=== PATIENT | female | born 1995 | race African-American/Black ===

== ENCOUNTER 2021-03-31 05:32 | Emergency (ER) | payer BC, SELFPAY ==
--- NOTE | ~2021-03-31 | CT_ITS ---
EXAMINATION: CT abdomen pelvis w con DATE: 03/31/2021 09:22 INDICATION: Lower abdominal pain and right flank pain TECHNIQUE: Computed tomography (CT) of the abdomen and pelvis was performed with 100 mL Omnipaque-350 intravenous contrast. Iterative reconstruction technique was employed. The dose-length product was 3 94.53 mGy-cm. COMPARISON: 03/31/2013 FINDINGS: Mild discoid atelectasis in the basilar right lower lobe. Heart size is normal. No pericardial or ple ural effusion. Liver, gallbladder, spleen, pancreas, bilateral adrenal glands and kidneys are normal. No hydronephrosis or evident urolithiasis. Bladder an anteverted uterus are normal. Bilateral adnexa l cysts measuring 3.0 cm on the left and 1.5 cm on the right. There are couple small diverticula chloe g the distal sigmoid colon without adjacent inflammatory change to suggest diverticulitis. Small micky l and appendix are normal. Small fat-containing umbilical hernia. No free intraperitoneal gas or flui d. No pathologically enlarged abdominal or pelvic lymphadenopathy. Bones are unremarkable. IMPRESSION: 1. No acute intra-abdominal/pelvic process. Normal appendix. Reviewed, dictated and finalized at location A.
[2021-03-31 05:37] VITALS: BP 131/99; PULSE 100; RESP 20; TEMP 36.4; O2SAT 100
[2021-03-31 06:07] LABS: Basophils Absolute Auto 0.1 K/mm3 (0.0-0.1); Basophils Percent Auto 0.7 % (0.2-1.2); Eosinophils Absolute Auto 0.3 K/mm3 (0-0.3); Eosinophils Percent Auto 3.7 % (0-4.4); Hematocrit 38.7 % (37.0-47.0); Hemoglobin 12.7 g/dL (12.0-15.0); Immature Granulocyte Absolute 0.02 K/mm3 (0.00-0.031); Immature Granulocyte Percent A 0.3 % (0-0.5); Lymphocytes Absolute Auto 2.82 K/mm3 (0.9-3.2); Lymphocytes Percent Auto 39.9 % (18.3-44.2); Mean Corpuscular HGB Conc 32.8 g/dl (32-36); Mean Corpuscular Hemoglobin 29.7 pg (26-34); Mean Corpuscular Volume 90.6 fl (80-100); Mean Platelet Volume 11.3 fl (7.4-10.4); Monocytes Absolute Auto 0.8 K/mm3 (0.1-0.6); Monocytes Percent Auto 10.6 % (2.6-8.5); Neutrophils Absolute Auto 3.2 K/mm3 (1.3-6.7); Neutrophils Percent Auto 44.8 % (45.5-73.1); Platelet Count Result 250 k/mm3 (150-375); Red Blood Count 4.27 M/mm3 (4.2-5.4); White Blood Count 7.1 K/mm3 (4.5-10.0)
[2021-03-31 06:17] LABS: Alanine Aminotransferase 13 U/L (4-35); Albumin Level 4.7 g/dL (3.5-5.1); Alkaline Phosphatase 69 U/L (38-126); Anion Gap 11 mmol/L (8-16); Aspartate Amino Transferase 25 U/L (14-36); Bilirubin,Total 0.3 mg/dL (0.2-1.3); Blood Urea Nitrogen 11 mg/dL (7-17); Calcium 9.6 mg/dL (8.4-10.2); Carbon Dioxide 19 mmol/L (22-30); Chloride 108 mmol/L (98-107); Estimated CRCL calculation 108 ml/min; Estimated Glomerular Filt Rate > 60; Glucose 88 mg/dL (65-110); Lipase 79 U/L (23-300); Potassium 4.1 mmol/L (3.4-5.0); Sodium 138 mmol/L (137-145)
[2021-03-31 06:20] LABS: Add Urine Microscopic? YES; Appearance Urine Turbid (Clear); Bacteria Urine Trace /hpf; Bilirubin Urine Negative (Negative); Color Urine Amber (Yellow); Glucose Urine UA Negative (Negative); Ketones Urine Negative (Negative); Leukocyte Esterase Ur 1+ LEU/UL (Negative); Mucus Urine Moderate /lpf; Nitrate Urine Negative (Negative); Protein Urine 1+ mg/dL (Negative); Squamous Epithelial Cell Urine Many /hpf (Few)
[2021-03-31 06:21] LABS: Blood Urine Negative (Negative); Specific Grav Ur 1.031 (1.001-1.035)
[2021-03-31 07:36] VITALS: BP 122/89; PULSE 77; RESP 18; O2SAT 100
--- NOTE | 2021-03-31 09:14 | ED.ABDPAIN ---
HPI - Abdominal Pain General Chief Complaint: Abdominal Pain Stated Complaint: multiple complaints Time Seen by Provider: 03/31/21 09:03 Source: patient and RN notes reviewed Mode of arrival: ambulatory Limitations: no limitations History of Present Illness HPI narrative: 25 years old -[place] female presents to the ED complaining of lower abdominal pain for 1 week. Radiating to right flank area. Patient denies any fever, chills, nausea, vomiting. Patient also complaining of itching rash of the upper back, shoulders and chest for months. Did not see any physician for it yet. Related Data Allergies Allergy/AdvReac Type Severity Reaction Status Date / Time No Known Allergies Allergy Verified 03/31/21 09:31 Review of Systems Review of Systems: CONSTITUTIONAL: Denies fever, chills, or sweats. EYES: Denies visual changes, redness, or discharge. ENT: Denies rhinorrhea, congestion, sore throat, or otalgia. CARDIOVASCULAR: Denies chest pain, palpitations, or edema. RESPIRATORY: Denies cough or dyspnea. GASTROINTESTINAL: Denies abdominal pain, nausea, vomiting, or diarrhea. GENITOURINARY: Denies dysuria or hematuria. SKIN: Denies rash or itching. MUSCULOSKELETAL: Denies back pain, joint pain, or myalgia. NEUROLOGIC: Denies headache, numbness, or weakness. PSYCHIATRIC: Denies anxiety or depression. Exam Narrative: General appearance: Well-developed, well-nourished Skin: Normal color, acne-like lesions at the upper chest and upper back Head: Normocephalic, nontraumatic Eyes: Clear conjunctiva ENT: Oropharynx normal, ears normal, nose normal Neck: Supple, nontender Chest and respiratory: Airway patent, no respiratory distress, no accessory muscle use Heart: Regular rate/rhythm Abdomen: Soft, nontender, no organomegaly, quiet bowel sounds, severe tenderness right flank Vascular: Normal peripheral pulses, normal capillary refill. Musculoskeletal: Normal range of motion, nontender back Neurologic: Alert and oriented ?3, [employer] is normal as tested, no gross motor deficit Course Course Emergency Course: Stable Vital Signs Vital signs: Vital Signs Temperature 36.4 C L 03/31/21 05:37 Pulse Rate 100 03/31/21 05:37 Respiratory Rate 20 03/31/21 05:37 Blood Pressure 131/99 H 03/31/21 05:37 Pulse Oximetry 100 03/31/21 05:37 Temperature 36.4 C L 03/31/21 05:37 Pulse Rate 74 03/31/21 09:34 Respiratory Rate 18 03/31/21 09:34 Blood Pressure 97/59 L 03/31/21 09:34 Pulse Oximetry 100 03/31/21 09:34 MDM - Abdominal Pain MDM Narrative Medical decision making narrative: Patient presents with lower abdominal pain radiating to right flank, my differential diagnosis as below. Labs, IV fluid, CT abdomen pelvis with IV contrast ordered. Differential Diagnosis Differential diagnosis: Likely abdominal pain, acute appendicitis, calculus of kidney, constipation and other (Pyelonephritis) Lab Data Result diagrams: 03/31/21 05:59 03/31/21 05:58 Labs: Lab Results 03/31/21 03/31/21 03/31/21 Range/Units 05:58 05:58 05:59 WBC 7.1 (4.5-10.0) K/mm3 RBC 4.27 (4.2-5.4) M/mm3 Hgb 12.7 (12.0-15.0) g/dL Hct 38.7 (37.0-47.0) % MCV 90.6 (80-100) fl MCH 29.7 (26-34) pg MCHC 32.8 (32-36) g/dl RDW 14.0 (11.5-14.5) % Plt Count 250 (150-375) k/mm3 MPV 11.3 H (7.4-10.4) fl Immature Gran % (Auto) 0.3 (0-0.5) % Neut % (Auto) 44.8 L (45.5-73.1) % Lymph % (Auto) 39.9 (18.3-44.2) % Branch % (Auto) 10.6 H (2.6-8.5) % Eos % (Auto) 3.7 (0-4.4) % Baso % (Auto) 0.7 (0.2-1.2) % Lymph # (Auto) 2.82 (0.9-3.2) K/mm3 Branch # (Auto) 0.8 H (0
[2021-03-31 09:34] VITALS: BP 97/59; PULSE 74; RESP 18; O2SAT 100
[2021-03-31] MEDS: SODIUM CHLORIDE 0.9% IV 1,000 ML 999 ML IV CONT (09:36)
[2021-03-31 11:49] VITALS: BP 106/71; PULSE 72; RESP 18; O2SAT 98
[2021-03-31 12:02] VITALS: BP 106/72; PULSE 72; RESP 18; O2SAT 98
== END 2021-03-31 12:07 | disposition home or self-care (01) ==
PROVIDERS: Emergency Medicine; Emergency Provider Emergency Medicine
DX: N39.0 Urinary tract infection, site not specified (principal); R21 Rash and other nonspecific skin eruption
CPT/HCPCS: 36415; 74177; 80053; 81001; 81025; 83690; 85025; 87086; 87088; 96360; 96361; 99284; J7030; Q9967

== ENCOUNTER 2021-05-11 11:00 | Emergency (ER) | payer BC, SELFPAY ==
--- NOTE | ~2021-05-11 | XR_ITS ---
EXAMINATION: XR chest 1V portable INDICATION: Chest tightness and weakness TECHNIQUE: Portable AP chest at 1310 hours COMPARISON: 04/02/2019 FINDINGS: There are minimal opacities of the right lung base. No pleural effusion or pneumothorax is identified. The cardiomediastinal silhouette is normal. IMPRESSION: 1. Minimal right basilar airspace opacity, consistent with atelectasis versus pneumonia. Reviewed, dictated and finalized at location B. IMPRESSION: 1. Minimal right basilar airspace opacity, consistent with atelectasis versus p neumonia.
[2021-05-11 11:28] VITALS: BP 114/91; PULSE 91; RESP 18; TEMP 36.1; O2SAT 100
[2021-05-11 11:56] VITALS: O2SAT 100
--- NOTE | 2021-05-11 13:39 | ECG_ITS ---
Measurements Intervals [place] Rate: 85 P: 67 [place]: 156 QRS: 50 QRSD: 100 T: 9 QT: 349 QTc: 416 Interpretive Statements SINUS RHYTHM NONSPECIFIC T-WAVE ABNORMALITY- INFERIOR LEADS BORDERLINE ECG Electronically Signed On 05-11-2021 19:02:52 CDT by Oscar Faust D.O.
--- NOTE | 2021-05-11 13:40 | ED.URI ---
HPI - URI/Sore Throat General Chief Complaint: Upper Respiratory Infection Stated Complaint: loss of taste and smell, headache Time Seen by Provider: 05/11/21 12:59 Source: patient Mode of arrival: ambulatory Limitations: no limitations History of Present Illness HPI Narrative: This is a 25-year-old female that presents to the emergency department for cold symptoms since this morning. Reports headache, cough, and loss of sense of taste and smell. Does report she is Covid vaccinated. She also reports she has started to develop some chest tightness. Reports history of asthma. Denies fever or shortness of breath. Related Data Home Medications Medication Instructions Recorded Confirmed albuterol See Rx Instructions .ROUTE 05/11/21 05/11/21 .COMPLEX PRN Allergies Allergy/AdvReac Type Severity Reaction Status Date / Time coconut oil Allergy Unknown Swelling Unverified 05/11/21 11:59 Mushroom Allergy Unknown Swelling Uncoded 05/11/21 11:59 Review of Systems Review of Systems: CONSTITUTIONAL: Denies fever ENT: Reports congestion CARDIOVASCULAR: Reports chest tightness RESPIRATORY: Reports cough. Denies dyspnea. All systems reviewed & are unremarkable except as noted in HPI and below PMFSH Past Medical History Medical History (Updated 05/11/21 @ 14:23 by Leah Finley PA-C) History of asthma Social History Social History (Updated 05/11/21 @ 13:43 by Leah Finley PA-C) Substance use: never Exam Narrative: GENERAL: Well-appearing, well-nourished, and in no acute distress. HEAD: Normocephalic, atraumatic. EYES: EOMI. ENT: Turbinates swollen and pale. Mucous membranes moist. Oropharynx without tonsillar hypertrophy exudate or other lesions. Bilateral TMs pearly willett non-bulging NECK: Supple. No adenopathy or masses. CHEST: Clear to auscultation. No respiratory distress. No wheezes rales or rhonchi HEART: Regular rate and rhythm. No murmur heard. Normal peripheral pulses. EXTREMITIES: Normal range of motion. No edema. SKIN: Warm, dry, no rash. NEURO: No focal deficits. Alert and oriented x3. PSYCH: Normal mood and affect Course Vital Signs Vital signs: Vital Signs Temperature 97 F L 05/11/21 11:28 Pulse Rate 91 05/11/21 11:28 Respiratory Rate 18 05/11/21 11:28 Blood Pressure 114/91 H 05/11/21 11:28 Pulse Oximetry 100 05/11/21 11:28 Temperature 97 F L 05/11/21 11:28 Pulse Rate 91 05/11/21 11:28 Respiratory Rate 18 05/11/21 11:28 Blood Pressure 114/91 H 05/11/21 11:28 Pulse Oximetry 100 05/11/21 11:56 MDM - URI/Sore Throat MDM Narrative Medical decision making narrative: Patient presents the emergency department for cold symptoms since this morning. She is afebrile and nontoxic-appearing. Vitals are stable. Chest x-ray shows minimal right basilar airspace opacity consistent with atelectasis versus pneumonia. EKG without concerning findings. Patient was swabbed for coronavirus. Patient ended up leaving AGAINST MEDICAL ADVICE before receiving any further treatment and before evaluation was finished Lab Data Attestation: I reviewed the patient's lab results. Result diagrams: 05/11/21 14:04 05/11/21 14:04 Labs: Lab Results 05/11/21 05/11/21 05/11/21 Range/Units 13:19 14:04 14:04 WBC 4.2 L (4.5-10.0) K/mm3 RBC 4.12 L (4.2-5.4) M/mm3 Hgb 12.5 (12.0-15.0) g/dL Hct 38.0 (37.0-47.0) % MCV 92.2 (80-100) fl MCH 30.3 (26-34) pg MCHC 32.9 (32-36) g/dl RDW 14.9 H (11.5-14.5) % Plt Count 222 (150-375) k/mm3 MPV 10.5 H (7.4-10.4) fl Immature Gran % (Auto) 0.2 (0-0.5) % Neut % (Auto) 42.2 L (45.5-73.1) % Lymph % (Auto) 43.0 (18.3-44.2) % Mcdonough % (Auto) 9.2 H (2.6-8.5) % Eos % (Auto) 4.7 H (0-4.4) % Baso % (Auto) 0.7 (0.2-1.2) % Lymph # (Auto) 1.82 (0.9-3.2) K/mm3 Mcdonough # (Auto) 0.4 (0.1-0.6) K/mm3 Eos # (Auto) 0.2 (0-0.3) K/mm3 Baso # (
[2021-05-11] MEDS: ALBUTEROL SULFATE (*SP) AEROSOL 1 PUFF 4 PUFF INHALATION (13:51)
[2021-05-11 14:14] LABS: Basophils Percent Auto 0.7 % (0.2-1.2); Eosinophils Absolute Auto 0.2 K/mm3 (0-0.3); Eosinophils Percent Auto 4.7 % (0-4.4); Hemoglobin 12.5 g/dL (12.0-15.0); Immature Granulocyte Absolute 0.01 K/mm3 (0.00-0.031); Immature Granulocyte Percent A 0.2 % (0-0.5); Lymphocytes Absolute Auto 1.82 K/mm3 (0.9-3.2); Mean Corpuscular HGB Conc 32.9 g/dl (32-36); Mean Corpuscular Hemoglobin 30.3 pg (26-34); Mean Corpuscular Volume 92.2 fl (80-100); Mean Platelet Volume 10.5 fl (7.4-10.4); Monocytes Absolute Auto 0.4 K/mm3 (0.1-0.6); Monocytes Percent Auto 9.2 % (2.6-8.5); Neutrophils Absolute Auto 1.8 K/mm3 (1.3-6.7); Neutrophils Percent Auto 42.2 % (45.5-73.1); Platelet Count Result 222 k/mm3 (150-375); Red Blood Count 4.12 M/mm3 (4.2-5.4); Red Cell Distribution Width 14.9 % (11.5-14.5); White Blood Count 4.2 K/mm3 (4.5-10.0)
--- NOTE | 2021-05-11 14:17 | PC.NURSE ---
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 LEONCIO made aware.
[2021-05-11 14:27] LABS: Anion Gap 5 mmol/L (8-16); Blood Urea Nitrogen 6 mg/dL (7-17); Calcium 8.9 mg/dL (8.4-10.2); Carbon Dioxide 23 mmol/L (22-30); Chloride 110 mmol/L (98-107); Estimated CRCL calculation 124 ml/min; Estimated Glomerular Filt Rate > 60; Glucose 91 mg/dL (65-110); Potassium 3.8 mmol/L (3.4-5.0); Sodium 138 mmol/L (137-145)
[2021-05-11 14:39] LABS: Troponin I < 0.012 ng/mL (0.000-0.034)
[2021-05-12 19:29] LABS: SARS-CoV-2 RNA PCR Negative
== END 2021-05-11 14:27 | disposition left against medical advice (07) ==
PROVIDERS: Physician Assistant; Emergency Provider Emergency Medicine
DX: R05 Cough (principal); R43.8 Other disturbances of smell and taste; R51.9 Headache, unspecified; Z20.822 Contact with and (suspected) exposure to COVID-19; J45.909 Unspecified asthma, uncomplicated; R91.8 Other nonspecific abnormal finding of lung field; R94.31 Abnormal electrocardiogram [ECG] [EKG]
CPT/HCPCS: 36415; 71045; 80048; 84484; 85025; 93005; 99284; A9270; C9803; U0003; U0005

== ENCOUNTER 2021-05-11 18:42 | Emergency (ER) | payer BC, SELFPAY ==
[2021-05-11 18:55] VITALS: BP 131/87; PULSE 86; RESP 16; TEMP 36.9; O2SAT 100
[2021-05-11 19:52] VITALS: O2SAT 100
--- NOTE | 2021-05-11 20:13 | ED.GENADULT ---
HPI - General Adult General Chief complaint: Upper Respiratory Infection Stated complaint: shortness of breath Time Seen by Provider: 05/11/21 19:44 History of Present Illness HPI narrative: Patient is a 25-year-old female who presents to the ER with Covid symptoms. Yesterday evening she developed cough and loss of taste/smell. Persist today. She came to see in the ER and left AMA. She is been at work and is feeling more fatigued so she came back. Reports she has cough that will be rapid in the make it where she has trouble catching her breath afterwards. No wheezing. Patient had a Covid PCR performed and is technically a PUI. Related Data Home Medications Medication Instructions Recorded Confirmed albuterol See Rx Instructions .ROUTE 05/11/21 05/11/21 .COMPLEX PRN Allergies Allergy/AdvReac Type Severity Reaction Status Date / Time coconut oil Allergy Unknown Swelling Verified 05/11/21 19:52 Mushroom Allergy Unknown Swelling Uncoded 05/11/21 19:52 Review of Systems Constitutional: Constitutional: Denies chills, Reports fatigue and Reports fever(s) ENT: Denies nasal congestion and Denies sore throat Cardiovascular: Cardiovascular: Denies chest pain and Denies radiating jaw, neck or arm pain Respiratory: Respiratory: Reports cough, Denies dyspnea and Denies wheezing Gastrointestinal: Gastrointestinal: Denies abdominal pain, Denies nausea and Denies vomiting PMFSH Past Medical History Medical History (Updated 05/11/21 @ 20:15 by Karlo Herzog MD) History of asthma Surgical History Surgical History (Updated 05/11/21 @ 20:14 by Karlo Herzog MD) No pertinent past surgical history Social History Social History (Updated 05/11/21 @ 13:43 by Leah Finley PA-C) Substance use: never Exam Narrative: GENERAL: Well-appearing, well-nourished, and in no acute distress. HEAD: Normocephalic, atraumatic. CHEST: Clear to auscultation. No respiratory distress. HEART: Regular rate and rhythm. Normal peripheral pulses. EXTREMITIES: Normal range of motion. No edema. NEURO: Alert and oriented x3. PSYCH: Normal mood and affect. Course Course Emergency Course: Discharged with albuterol and work note. Vital Signs Vital signs: Vital Signs Temperature 98.4 F 05/11/21 18:55 Pulse Rate 86 05/11/21 18:55 Respiratory Rate 16 05/11/21 18:55 Blood Pressure 131/87 05/11/21 18:55 Pulse Oximetry 100 05/11/21 18:55 Temperature 98.4 F 05/11/21 18:55 Pulse Rate 86 05/11/21 18:55 Respiratory Rate 16 05/11/21 18:55 Blood Pressure 131/87 05/11/21 18:55 Pulse Oximetry 100 05/11/21 19:52 Medical Decision Making Vital Signs Vital Signs: Vital Signs Temperature 98.4 F 05/11/21 18:55 Pulse Rate 86 05/11/21 18:55 Respiratory Rate 16 05/11/21 18:55 Blood Pressure 131/87 05/11/21 18:55 Pulse Oximetry 100 05/11/21 18:55 Temperature 98.4 F 05/11/21 18:55 Pulse Rate 86 05/11/21 18:55 Respiratory Rate 16 05/11/21 18:55 Blood Pressure 131/87 05/11/21 18:55 Pulse Oximetry 100 05/11/21 19:52 Discharge Plan Discharge Clinical Impression: Person under investigation for severe acute respiratory syndrome coronavirus 2 (SARS-CoV-2) infection Patient Disposition: Home, Self-Care Condition: Stable Instructions: COVID-19 (Coronavirus Disease 2019) (ED) Additional Instructions: Your person under investigation for Covid. We are awaiting your Covid test results. You should remain in isolation until you receive the results. If your results are positive you will need to self isolate for 10 days. Return the ER if you lose consciousness, you cannot breathe, or you have additional concerns. Prescriptions: New albuterol sulfate 90 mcg/actuation HFA aerosol inhaler 2 puff INHALATION QID PRN (Reason: shortness of breath or wheezing) Qty: 8 RF: 0 No Action albuterol 90 mcg/actuation Aerosol See Rx Instructions .ROUTE .
[2021-05-11 20:28] VITALS: BP 110/71; PULSE 98; RESP 14; O2SAT 100
== END 2021-05-11 20:27 | disposition home or self-care (01) ==
PROVIDERS: Emergency Provider Emergency Medicine
DX: R43.8 Other disturbances of smell and taste (principal); R05 Cough; Z20.822 Contact with and (suspected) exposure to COVID-19; J45.909 Unspecified asthma, uncomplicated
CPT/HCPCS: 99283

== ENCOUNTER 2023-05-30 21:43 | Emergency (ER) | payer BC, SELFPAY ==
[2023-05-30] VITALS (9 sets, daily range): BP systolic 105–124; BP diastolic 68–81; PULSE 94–107; RESP 12–24; TEMP 36.1; O2SAT 98–100
--- NOTE | ~2023-05-30 | XR_ITS ---
EXAMINATION: XR chest 2V DATE: 05/31/2023 01:44 INDICATION: Cough, left-sided chest pain TECHNIQUE: Frontal and lateral views of the chest are obtained COMPARISON: 05/11/2021 FINDINGS: The lungs are free of acute opacities. No pleural effusion or pneumothorax. The cardiomedia stinal silhouette is normal. The visualized bones and soft tissues are unremarkable. IMPRESSION: 1. No acute cardiopulmonary abnormality. Reviewed, dictated and finalized at location F.
--- NOTE | ~2023-05-30 | CT_ITS ---
EXAMINATION: CT brain wo con INDICATION: Headache COMPARISON: 04/02/2019 TECHNIQUE: Standard unenhanced head CT. The dose-length product (DLP) was 605.33 mGy-cm. The mA was a djusted according to patient size. Iterative reconstruction technique was employed. FINDINGS: No intracranial hemorrhage, acute infarction, or abnormal mass lesion. The ventricles are n ormal. No abnormal mass effect or midline shift. The willett-white matter differentiation is normal. The basal cisterns are patent. The orbits are normal. The paranasal sinuses, mastoids and calvarium are normal. IMPRESSION: 1. No acute intracranial abnormality. Reviewed, dictated and finalized at location F.
--- NOTE | 2023-05-30 23:30 | PC.NURSE ---
This Rn assumed care of patient. This RN took patient report from KAREN Sarah.
[2023-05-31] VITALS (21 sets, daily range): BP systolic 98–123; BP diastolic 60–88; PULSE 87–111; RESP 12–28; O2SAT 100
--- NOTE | 2023-05-31 00:20 | ECG_ITS ---
Measurements Intervals [place] Rate: 92 P: 44 OR: 149 QRS: 48 QRSD: 103 T: 16 QT: 350 QTc: 435 Interpretive Statements SINUS RHYTHM BORDERLINE T WAVE ABNORMALITY- INFERIOR LEADS BASELINE ARTIFACT- I, III, V5 BORDERLINE ECG COMPARED TO ECG 05/11/2021 14:00:54 NO SIGNIFICANT CHANGES Electronically Signed On 05-31-2023 8:11:31 CDT by Oscar Faust D.O.
--- NOTE | 2023-05-31 00:20 | ED.HA ---
HPI - Headache General Chief Complaint: Headache <SYDNIE Griffiths Last Filed: 05/31/23 04:41> Stated Complaint: URI <SYDNIE Griffiths Last Filed: 05/31/23 04:41> Time Seen by Provider: 05/30/23 23:44 <SYDNIE Griffiths Last Filed: 05/31/23 04:41> History of Present Illness HPI Narrative: 27-year-old female reports to the emergency department for multiple complaints. Patient states she has a history of migraines and has been having migraine headaches for the past week. States today she is having a headache that shoots from the left side of her neck up into her head that is different from her prior migraines. She states last night she developed rhinorrhea and nasal congestion and this morning woke up with a productive cough, sore throat, chest pain and shortness of breath. She reports the chest pain is pleuritic, intermittent and sharp in nature overlying her anterior left chest wall. She denies hemoptysis, history of VTE, fever, abdominal pain, vomiting or diarrhea. She reports body aches and chills. States she took a antihistamine yesterday without improvement. Denies vision changes, focal numbness or weakness, head injury, loss of consciousness, palpitations, BLE. <SYDNIE Griffiths Last Filed: 05/31/23 04:41> Related Data Home Medications: Home Medications Medication Instructions Recorded Confirmed albuterol 90 mcg/actuation aerosol See Rx Instructions .Route 05/11/21 05/11/21 inhaler .COMPLEX PRN Shortness Of Breath Or Wheezing <SYDNIE Griffiths Last Filed: 05/31/23 04:41> Allergies/Adverse Reactions: Allergies Allergy/AdvReac Type Severity Reaction Status Date / Time coconut oil Allergy Unknown Swelling Verified 05/31/23 00:31 Mushroom Allergy Unknown Swelling Uncoded 05/14/21 15:42 <SYDNIE Griffiths Last Filed: 05/31/23 04:41> Review of Systems Review of Systems: CONSTITUTIONAL: See HPI EYES: Denies visual changes, redness, or discharge. ENT: See HPI CARDIOVASCULAR: See HPI RESPIRATORY: See HPI GASTROINTESTINAL: Denies abdominal pain, nausea, vomiting, or diarrhea. GENITOURINARY: Denies dysuria or hematuria. SKIN: Denies rash or itching. MUSCULOSKELETAL: Denies back pain, joint pain, or myalgia. NEUROLOGIC: See HPI PSYCHIATRIC: Denies anxiety or depression. <Leora Alexander PA-C - Last Filed: 05/31/23 04:41> [facility] Past Medical History Medical History: Medical History History of asthma <Leora Alexander PA-C - Last Filed: 05/31/23 04:41> Surgical History Surgical History: Surgical History No pertinent past surgical history <Leora Alexander PA-C - Last Filed: 05/31/23 04:41> Social History Social History: Social History Substance use: never <Leora Alexander PA-C - Last Filed: 05/31/23 04:41> Exam Narrative: GENERAL: Well-appearing, in no acute distress. Patient resting comfortably in exam bed. She is pleasant and conversational. Speaking in full sentences. HEAD: Normocephalic EYES: PERRLA, EOMI ENT: Nares clear. Mucous membranes moist. Oropharynx without tonsillar hypertrophy exudate or other lesions. NECK: Supple. No nuchal rigidity. CHEST: No respiratory distress. Wheezing and rhonchi in the right lower lung field. HEART: Regular rate and rhythm. No murmur heard. Normal peripheral pulses. ABDOMEN: Soft, nontender, normal active bowel sounds. No CVA tenderness. EXTREMITIES: Normal range of motion. No edema. SKIN: Warm, dry, no rash. NEURO: No focal deficits. Alert and oriented x3. Cranial nerves II through XII intact. Strength 5/5 in BLE and BUE. Sensation intact throughout. Normal [id number]. No pronator drift. PSYCH: Normal mood and affect. <Leora Alexander PA-C - Last Delfino
[2023-05-31] MEDS: ALBUTEROL SULFATE NEB 2.5 MG/3 ML INH INHALATION (00:30)
[2023-05-31] MEDS: IPRATROPIUM BR 0.02% INH SOLN 0.5 MG/2.5 ML VIAL INHALATION (00:30)
[2023-05-31] MEDS: SODIUM CHLORIDE 0.9% IV 1,000 ML 999 ML IV CONT (00:32)
[2023-05-31 01:02] LABS: Alanine Aminotransferase 13 U/L (6-35); Albumin Level 4.3 g/dL (3.5-5.1); Alkaline Phosphatase 64 U/L (38-126); Anion Gap 5 mmol/L (8-16); Aspartate Amino Transferase 20 U/L (14-36); Bilirubin,Total 0.4 mg/dL (0.2-1.3); Blood Urea Nitrogen 9 mg/dL (7-17); Calcium 8.5 mg/dL (8.4-10.2); Carbon Dioxide 25 mmol/L (22-30); Chloride 106 mmol/L (98-107); Estimated CRCL calculation 97 ml/min; Estimated Glomerular Filt Rate > 60; Glucose 84 mg/dL (65-110); Lipase 61 U/L (23-300); Potassium 3.8 mmol/L (3.4-5.0); Sodium 136 mmol/L (137-145)
[2023-05-31 01:07] LABS: Basophils Percent Auto 0.3 % (0.2-1.2); Eosinophils Absolute Auto 0.2 K/mm3 (0-0.3); Eosinophils Percent Auto 1.5 % (0-4.4); Hematocrit 39.1 % (37.0-47.0); Hemoglobin 12.7 g/dL (12.0-15.0); Immature Granulocyte Absolute 0.14 K/mm3 (0.00-0.031); Immature Granulocyte Percent A 1.1 % (0-0.5); Lymphocytes Absolute Auto 5.46 K/mm3 (0.9-3.2); Lymphocytes Percent Auto 42.1 % (18.3-44.2); Mean Corpuscular HGB Conc 32.5 g/dl (32-36); Mean Corpuscular Hemoglobin 30.8 pg (26-34); Mean Corpuscular Volume 94.9 fl (80-100); Monocytes Absolute Auto 0.7 K/mm3 (0.1-0.6); Monocytes Percent Auto 5.2 % (2.6-8.5); Neutrophils Absolute Auto 6.4 K/mm3 (1.3-6.7); Neutrophils Percent Auto 49.8 % (45.5-73.1); Platelet Count Result 227 k/mm3 (150-375); Red Blood Count 4.12 M/mm3 (4.2-5.4); Red Cell Distribution Width 13.6 % (11.5-14.5)
[2023-05-31 01:15] LABS: Strep Group A RT-PCR NOT DETECTED (Negative)
[2023-05-31 01:26] LABS: Influenza A QL RT-PCR Negative (Negative); Influenza B QL RT-PCR Negative (Negative); SARS-CoV-2 RNA PCR Negative (Negative)
[2023-05-31 01:27] LABS: D Dimer 0.28 ug/mL (<0.48)
[2023-05-31 01:56] LABS: INR 1.1; Prothrombin Time 14.2 Seconds (11.1-14.7); Troponin I < 0.012 ng/mL (0.000-0.034)
[2023-05-31] MEDS: PROCHLORPERAZINE EDISYLATE 10 MG/2 ML VIAL IV PUSH (02:44)
[2023-05-31] MEDS: KETOROLAC 30 MG/ML VIAL (*BKC) IV PUSH (02:44)
[2023-05-31] MEDS: diphenhydrAMINE HCl INJ 50 MG/ML VIAL 25 MG IV PUSH (02:44)
[2023-05-31] MEDS: SODIUM CHLORIDE 0.9% IV 1,000 ML 999 ML (03:03)
--- NOTE | 2023-05-31 03:05 | PC.NURSE ---
This RN administered 1L of sodium chloride via IV bolus at a rate of 999mls/ hour via EDP Na. This RN verbal order read back for confirmation of medication being given to patient.
== END 2023-05-31 06:41 | disposition home or self-care (01) ==
PROVIDERS: Physician Assistant; Emergency Provider Preventive Medicine Aerospace Medicine
DX: R51.9 Headache, unspecified (principal); J45.909 Unspecified asthma, uncomplicated; J06.9 Acute upper respiratory infection, unspecified; R07.89 Other chest pain; Z20.822 Contact with and (suspected) exposure to COVID-19; R94.31 Abnormal electrocardiogram [ECG] [EKG]
CPT/HCPCS: 36415; 70450; 71046; 80053; 81025; 83690; 84484; 85025; 85380; 85610; 85730; 87636; 87651; 93005; 94640; 96361; 96374; 96375; 99284; J0780; J1200; J1885; J7030